=== PATIENT | female | born 1980 | race Caucasian/White ===

== ENCOUNTER → 2022-04-17 | Emergency (ER) | payer OTHER ==
[~2022-04-17] VITALS: Ht 152.4 cm; Wt 99.8 kg
[~2022-04-17] MED LIST: SYNTHROID125 MCG
== END | disposition home or self-care (01) ==
LOC: ER 18:09
DX: S89.92XA Unspecified injury of left lower leg, initial encounter (principal); S80.912A Unspecified superficial injury of left knee, initial encounter; X58.XXXA Exposure to other specified factors, initial encounter; Y93.9 Activity, unspecified; Y92.9 Unspecified place or not applicable; Y99.9 Unspecified external cause status